=== PATIENT | female | born 1985 | race Caucasian/White ===

== ENCOUNTER 2021-08-03 07:48 | Outpatient (CLI) | payer BC, SELFPAY ==
--- NOTE | ~2021-08-03 | MR_ITS ---
EXAMINATION: MR pituitary wo/w con EXAM DATE: 08/03/2021 08:52 INDICATION: Hyperprolactinemia . TECHNIQUE: Magnetic resonance imaging (MRI) of the brain/brain stem obtained without contrast. Sagit juan T1, axial diffusion, gradient echo (T2*), T1, T2, FLAIR sequences obtained. Patient was then inj ected with 15 cc intravenous Multihance contrast. Axial and coronal postcontrast T1 weighted sequence s obtained. A pituitary protocol was utilized including dynamic imaging through the pituitary gland d uring intravenous injection of contrast. There are no prior studies for comparison. FINDINGS: The pituitary gland measures 9 x 8 x 12 mm, is confined to the sella turcica. Suprasellar region normal in appearance. The optic chiasm normal. Infundibulum is midline. No definite pituit gage microadenoma identified. Please note small microadenomas can cause endocrine abnormalities but a re not always identified by imaging even using dedicated pituitary protocol. This does exclude macro adenoma or need for surgical management. There are no areas of restricted diffusion to suggest acute infarction. There is no acute hemorrhage seen on the T2*, a hemosiderin sensitive sequence. No intraparenchymal brain mass. The ventricles a re normal in size. There are no extra-axial collections. Flow voids are seen in the cerebral arteri es on the T2-weighted sequences consistent with their expected patency. The orbits are unremarkable. Soft tissue is unremarkable. IMPRESSION: Unremarkable brain MRI/pituitary examination. Reviewed, dictated and finalized at location B. 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
[2021-08-03 08:12] LABS: Estimated Glomerular Filt Rate 43
== END 2021-08-03 07:49 | disposition home or self-care (01) ==
LOC: ANHIMG 07:50
PROVIDERS: PCP Nurse Practitioner Family; Visit Provider Nurse Practitioner Family
DX: E22.1 Hyperprolactinemia (principal)
CPT/HCPCS: 70553; A9577